=== PATIENT | male | born 1990 | race Caucasian/White ===

== ENCOUNTER 2017-03-07 11:26 | Emergency (ER) | payer OTHER ==
[~2017-03-07] VITALS: Ht 162.6 cm; Wt 59.0 kg
[~2017-03-07 11:26] MED LIST: ALBUTEROL0.09 MG/A1 INH; DELTASONE20 MG PO; DILAUDID2 MG PO; GUAIFENESIN-COD10 ML PO; PROAIR HFA0.09 MG/Ac INH; PROAIR HFA8.5 GM INH; TESSALON PERLE100 MG PO; TRAMADOL50 MG PO; ZITHROMAX Z-PA250 M1 PO; ZITHROMAX250 M2 PO
--- NOTE | 2017-03-07 11:48 | ED INFLUENZA/URI COMPLAINT ---
History of Present Illness General Chief Complaint: Upper Respiratory Sx/Fever Stated Complaint: PT COUGHING UP BLOOD,AND GREEN STUFF Source: patient Exam Limitations: no limitations Vital Signs & Intake/Output Vital Signs & Intake/Output Vital Signs Date Time Temp Pulse Resp B/P B/P Pulse O2 O2 Flow FiO2 Mean Ox Delivery Rate 03/07 1327 97.1 89 18 121/70 96 Room Air ED Intake and Output 03/08 0000 03/07 1200 Intake Total Output Total Balance Patient 130 lb Weight Allergies Coded Allergies: No Known Allergies (03/20/16) Reconcile Medications Albuterol Sulfate (Proair Hfa) 8.5 GM HFA.AER.AD 2 PUF INH Q4-6 PRN PRN BRONCHITIS Amoxicillin/Potassium Clav (Augmentin 875-125 Tablet) 875 MG-125 MG TABLET 1 TAB PO BID BRONCHITIS Benzonatate (Tessalon Perle) 100 MG CAPSULE 1 CAP PO TID PRN COUGH Triage Note: PT STATES THAT HE WAS DIAGNOSED WITH BRONCHITIS AND WAS GIVEN INHALER/ABT/ AND STEROIDS. STATES THAT HE DOES NOT FEEL BETTER. DENIES SEEING BLOOD, STTAES THAT HE TASTE IT INHIS MOUTH WHEN HE COUGHS Triage Nurses Notes Reviewed? yes Onset: Gradual Duration: week(s): (2-3) Timing: recent history Severity: moderate Severity Numbers: 7 Prior Episodes/Possible Cause: occassional episodes No Modifying Factors: none HPI: Patient is a 26-year-old smoker presenting to the emergency department with chief complaint of intermittently productive cough of dark green phlegm has been going on for the past 2 weeks. Patient has still been smoking but cut back significantly. Denies any nausea vomiting fevers or chills. He saw his primary care physician about a week ago and was put on steroids, a Z-Darian and an inhaler. He reports that has not been helping. Denies any abdominal pain. No chest pain no shortness of breath. He does have history of asthma. He reports that he tasted blood in his mouth but did not see any blood. Denies alcohol use. Denies excessive NSAID use or stomach ulcers. (RAFY HARDIN) Past History Travel History Traveled to [place] past 21 day No Medical History Any Pertinent Medical History? 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 No (RAFY HARDIN) Review of Systems Review of Systems Constitutional: Reports: no symptoms. Comments Review of systems: See HPI, All other systems negative. Constitutional, no chills fever or weight loss HEENT: No visual changes no sore throat Cardiovascular: No chest pain ,palpitation , orthopnea or ankle swelling Skin, no jaundice no rashes Respiratory: No dyspnea or hemoptysis GI: No nausea no vomiting : No dysuria No hematuria Muscle skeletal: no back pain, no neck pain, Neurologic: No numbness no confusion Psych: No stress anxiety or depression,. Heme/endocrine: No bruising no bleeding no polyuria or polydipsia Immunology: No splenectomy or history of AIDS (RAFY HARDIN) Physical Exam Physical Exam General Appearance: well developed/nourished, no apparent distress, alert, awake , comfortable Ears, Nose, Throat: nasal congestion Comments: Well-developed well-nourished person in no acute distress HEENT: Normal EENT exam, extraocular motion intact, no nystagmus. Pupils equally round and reactive to light and accommodation. Nose is atraumatic. External auditory canal and Tympanic membranes clear. Pharynx is mildly erythematous, no exudate. Clearing secretions without difficulty. No swelling or edema. Neck: Supple, no lymphadenopathy, normal range of motion without pain or tenderness Back: Nontender Cardiovascular: Regular rate and rhythms no murmurs rubs or gallops, normal JVP Respiratory: Chest nontender. No respiratory distress.breath sounds slightly diminished to auscultation bilaterally Extremity: No edema Neuro: Alert oriented x3 Skin: No appreciable rash on exposed skin, skin is warm and dry. Psych: Mood and affect is normal, memory and judgment is normal. Core Measures Severe Sepsis Present: No Septic Shock Present: No (RAFY HARDIN) Progress Differential Diagnosis: influenza, pharyngitis, sinusitis Plan of Care: Orders Procedure Date/time Status XRY-CHEST XRAY, PA AND LATERAL 03/07 1147 Active Diagnostic Imaging: Viewed by Me: Radiology Read. Discussed w/RAD: Radiology Read. CXR Impression: no acute abnormality, no infiltrates, normal size heart, normal mediastinum Initial ED EKG: none (RAFY HARDIN) Departure Departure Time of Disposition: 1321 Disposition: HOME OR SELF CARE Condition: Stable Clinical Impression Primary Impression: Bronchitis Referrals: LORENA SINHA APRN (PCP/Family) Additional Instructions: Follow-up with your primary care physician call to make an appointment. Increase fluids. Take antibiotics as prescribed. Take cough medication as prescribed. Continue using inhaler. Return for worsening symptoms or concerns. Departure Forms: Customer Survey General Discharge Information Prescriptions: Current Visit Scripts Amoxicillin/Potassium Clav (Augmentin 875-125 Tablet) 1 TAB PO BID #20 TAB Benzonatate (Tessalon Perle) 1 CAP PO TID PRN COUGH #30 CAP (RAFY HARDIN) PA/[employer] Co-Sign Statement Statement: ED Attending supervision documentation- [] I saw and evaluated the patient. I have also reviewed all the pertinent lab results and diagnostic results. I agree with the findings and the plan of care as documented in the PA's/[employer] documentation. [X] I have reviewed the ED Record and agree with the PA's/[employer] documentation. [] Additions or exceptions (if any) to the PAs/[employer]'s note and plan are summarized below: [] (AIMEE MAURICIO,HEVER)
--- NOTE | 2017-03-07 13:02 | RADIOLOGY REPORT ---
EXAMINATION: XR CHEST CLINICAL INFORMATION: Cough. COMPARISON: Chest done on 03/14/2016. TECHNIQUE: 2 views of the chest were obtained. FINDINGS: Persistent stable mild hyperinflated lung field is present, appear bilaterally symmetric. No superimposed discrete focal airspace opacity, lung nodule and/or mass is identified on either side. The cardiomediastinal silhouette is within normal limits. There is no pleural effusion present. The visualized upper abdomen is unremarkable. Overall, no significant change since prior study. IMPRESSION: No acute cardiopulmonary disease. No significant change since 03/14/2016.
[2017-03-07] MEDS ORDERED: TESSALON PERLE100 M1 PO (13:25)
[2017-03-07] MEDS ORDERED: AUGMENTIN 875-1 EACH PO (13:25)
[2017-03-07 13:27] VITALS: BP 121/70
== END 2017-03-07 13:30 ==
LOC: ERH 11:26
DX: J40 Bronchitis, not specified as acute or chronic (principal); F17.210 Nicotine dependence, cigarettes, uncomplicated

== ENCOUNTER 2017-03-11 04:10 | Emergency (ER) | payer OTHER ==
[~2017-03-11] VITALS: Ht 162.6 cm; Wt 59.0 kg
[~2017-03-11 04:10] MED LIST changes: +AUGMENTIN 875-1 EACH PO; +TESSALON PERLE100 M1 PO
[2017-03-11 04:15] VITALS: BP 116/78
--- NOTE | 2017-03-11 04:19 | ED DYSPNEA/ASTHMA COMPLAINT ---
History of Present Illness General Chief Complaint: Dyspnea (COPD, CHF, Other) Stated Complaint: DIFF BREATHING 96% ON RM AIR Source: patient, old records Exam Limitations: no limitations Vital Signs & Intake/Output Vital Signs & Intake/Output Vital Signs Date Time Temp Pulse Resp B/P B/P Pulse O2 O2 Flow FiO2 Mean Ox Delivery Rate 03/11 0435 95 03/11 0419 95 Room Air 03/11 0415 96.2 80 18 116/78 95 Room Air Allergies Coded Allergies: No Known Allergies (03/20/16) Reconcile Medications Albuterol Sulfate (Proair Hfa) 8.5 GM HFA.AER.AD 2 PUF INH Q4-6 PRN PRN BRONCHITIS Amoxicillin/Potassium Clav (Augmentin 875-125 Tablet) 875 MG-125 MG TABLET 1 TAB PO BID BRONCHITIS Benzonatate (Tessalon Perle) 100 MG CAPSULE 1 CAP PO TID PRN COUGH Triage Note: TRIAGE: PATIENT TO ER FROM HOME REPORTS DRY COUGH X 4 WEEKS W/ INTERMITTENT CLEAR PRODUCTION W/ "BLOOD TINGED FROM BROKEN BLOOD VESSEL." SPEAKING W/ CLEAR SPEECH/ FULL SENTENCES. NO AUCTE DISTRESS NOTED. 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 REPORTS SEEN FRIDAY W/ CHEST XRAY DONE, GIVEN RX FOR ABX, CODIENE AND INHALER USING ALL W/O RELIEF. AWAITING MD MATHUR. Triage Nurses Notes Reviewed? yes HPI: Condition percent to the emergency room with an ongoing cough. Patient was seen by his primary care physician and prescribed prednisone and an inhaler. Patient then came to the emergency department on March 07 and had a negative chest x-ray. Patient was put on Augmentin, Tessalon Perles and Robitussin with codeine. Patient states that he continues to have a cough however he no longer has blood in his sputum. There are no fevers or chills. Patient states he was unable to sleep at all tonight secondary to the coughing. There is no orthopnea. No dyspnea on exertion. There is no chest pain or chest tightness. Past History Travel History Traveled to [place] past 21 day No Medical History Any Pertinent Medical History? 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 No Review of Systems Review of Systems Constitutional: Reports: no symptoms. EENTM: Reports: no symptoms. Respiratory: Reports: see HPI, cough, sputum production. Cardiovascular: Reports: no symptoms. GI: Reports: no symptoms. Genitourinary: Reports: no symptoms. Musculoskeletal: Reports: no symptoms. Skin: Reports: no symptoms. Neurological/Psychological: Reports: no symptoms. Hematologic/Endocrine: Reports: no symptoms. Immunologic/Allergic: Reports: no symptoms. All Other Systems: Reviewed and Negative Physical Exam Physical Exam General Appearance: well developed/nourished, alert, awake, anxious, mild distress Head: atraumatic, normal appearance Eyes: Bilateral: PERRL, EOMI. Ears, Nose, Throat: normal pharynx, normal ENT inspection, hearing grossly normal Neck: normal inspection, supple, full range of motion Respiratory: chest non-tender, wheezing, GOOD AIR ENTRY Cardiovascular: regular rate/rhythm, normal peripheral pulses Gastrointestinal: normal bowel sounds, soft, non-tender, no organomegaly Extremities: normal inspection, normal capillary refill, normal range of motion, no edema Neurologic/Psych: no motor/sensory deficits, awake, alert, oriented x 3, normal gait, normal mood/affect Skin: intact, normal color, warm/dry Lymphatic: no anterior cervical andi Core Measures ACS in differential dx? No Severe Sepsis Present: No Septic Shock Present: No Progress Differential Diagnosis: asthma, bronchitis, pneumonia Plan of Care: Current Medications Sig/Patric Start time Last Medication Dose Stop Time Status Admin Albuterol Sulfate 3 ML ONCE ONE 03/11 430 AC (Proventil) 03/11 431 Ipratropium Patterson 2.5 ML ONCE ONE 03/11 430 AC (Atrovent) 03/11 431 Initial ED EKG: none Comments: Patient feels much better after the DuoNeb. Departure Departure Disposition: HOME OR SELF CARE Condition: Stable Clinical Impression Primary Impression: Bronchitis Referrals: LORENA SINHA APRN (PCP/Family) Additional Instructions: RETURN FOR ANY CONCERNS Departure Forms: Customer Survey General Discharge Information Critical Care Note Critical Care Note Critical Care Time: non-applicable
== END 2017-03-11 05:08 ==
LOC: ERH 04:10
DX: J40 Bronchitis, not specified as acute or chronic (principal); Z87.891 Personal history of nicotine dependence
CPT/HCPCS: 1263; 1395

== ENCOUNTER 2017-05-22 15:17 | Emergency (ER) | payer OTHER ==
[~2017-05-22] VITALS: Ht 160 cm; Wt 59.0 kg
[2017-05-22 15:24] VITALS: BP 134/83
--- NOTE | 2017-05-22 16:18 | CT SCAN REPORT ---
EXAMINATION: CT HEAD WITHOUT CONTRAST CLINICAL INFORMATION: Head trauma. Blurred vision, lethargy. COMPARISON: 04/05/2008 TECHNIQUE: Contiguous axial imaging was performed from the skull base to vertex without intravenous contrast. DLP: 612 mGy-cm. FINDINGS: There is no evidence of acute intracranial hemorrhage or territorial infarction. No abnormal mass effect or midline shift is seen. Ayon to white matter differentiation is well preserved. No extra-axial fluid collections are identified. No hydrocephalus. No significant volume loss. There is no abnormal attenuation within the brain parenchyma. The osseous structures and soft tissues are normal. The mastoid air cells and visualized portions of the paranasal sinuses are well aerated. IMPRESSION: No acute intracranial pathology.
[2017-05-22] MEDS ORDERED: IBUPROFEN800 M1 PO (17:33)
[2017-05-22] MEDS ORDERED: TRAMADOL HCL50 M1 PO (17:33)
--- NOTE | 2017-05-22 17:34 | ED MVC/FALL/TRAUMA COMPLAINT ---
History of Present Illness General Chief Complaint: Facial or Head Injury Stated Complaint: PT HIT HIS HEAD WITH A BAR AT WORK Source: patient Exam Limitations: no limitations Vital Signs & Intake/Output Vital Signs & Intake/Output Vital Signs Date Time Temp Pulse Resp B/P B/P Pulse O2 O2 Flow FiO2 Mean Ox Delivery Rate 05/22 1524 98.9 62 16 134/83 99 Room Air Allergies Coded Allergies: No Known Allergies (03/20/16) Reconcile Medications Albuterol Sulfate (Proair Hfa) 8.5 GM HFA.AER.AD 2 PUF INH Q4-6 PRN PRN BRONCHITIS Amoxicillin/Potassium Clav (Augmentin 875-125 Tablet) 875 MG-125 MG TABLET 1 TAB PO BID BRONCHITIS Benzonatate (Tessalon Perle) 100 MG CAPSULE 1 CAP PO TID PRN COUGH Ibuprofen 800 MG TABLET 1 TAB PO TID PRN pain Tramadol HCl 50 MG TABLET 1 TAB PO TIDP PRN pain Triage Note: PT HIT HEAD INTO METAL BAR APPROX 4 HOURS AGO, DENIES LOC. ICED IT WITHOUT RELIEF. C/O BLURRED VISION. APPEARS LETHARGIC. +N/-V. PT HAS PHOTOSENSITIVITY, PUPILS REACTIVE, L 4MM AND R 3MM. DIFFICULTY WITH FOCAL CONTROL. SPEAKING IN CLEAR SENTENCES. Triage Nurses Notes Reviewed? yes Onset: Abrupt Duration: hour(s): (6), continues in ED, getting worse Timing: single episode today Severity: moderate, severe Severity Numbers: 9 Injuries/Fall Location: head Method of Injury: direct blow Loss of Consciousness: no loss of consciousness No Modifying Factors: none Associated Symptoms: headache HPI: 27-year-old male with no past medical history presents complaining of headache after hitting his head earlier today. 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 He states that he had some blurred vision and medially after hitting his head but did not lose consciousness. The blood vision has since resolved. He did not fall over and hit his head. Since then he has a headache on the top of his head with associated lump. Pain is worse with touching the area. He rates pain as a 9 out of 10. He tried taking Excedrin earlier today without any improvement. He denies any vomiting but does report some nausea since. No memory loss, confusion, blood thinners, and could be, chest pain, shortness of breath, previous head injuries, or any other associated symptoms. Past History Travel History Traveled to [place] past 21 day No Medical History Any Pertinent Medical History? 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 No Review of Systems Review of Systems Constitutional: Reports: see HPI. Eyes: Reports: no symptoms. Ears, Nose, Throat, Mouth: Reports: no symptoms. Respiratory: Reports: no symptoms. Cardiovascular: Reports: no symptoms. Gastrointestinal/Abdominal: Reports: no symptoms. Genitourinary: Reports: no symptoms. Musculoskeletal: Reports: no symptoms. Skin: Reports: no symptoms. Neurological/Psychological: Reports: headache. All Other Systems: Reviewed and Negative Physical Exam Physical Exam General Appearance: well developed/nourished, no apparent distress, alert, awake , comfortable Head: atraumatic, normal appearance Eyes: Bilateral: normal appearance, PERRL, EOMI, normal inspection. Ears, Nose, Throat, Mouth: hearing grossly normal, moist mucous membrane, Tympanic normal Neck: normal inspection, supple, full range of motion, normal alignment Respiratory: normal breath sounds, chest non-tender, no respiratory distress, lungs clear Cardiovascular: regular rate/rhythm, edema, normal peripheral pulses Peripheral Pulses: 2+ radial (R), 2+ radial (L) Gastrointestinal: normal bowel sounds, soft, non-tender, no organomegaly Back: normal inspection, normal range of motion, no vertebral tenderness Extremities: normal range of motion, no ligament instability Neurologic/Psych: no motor/sensory deficits, awake, alert, oriented x 3, normal gait, normal mood/affect, equipment lead II-XII nml as tested Skin: intact, normal color, warm/dry Core Measures ACS in differential dx? No Severe Sepsis Present: No Septic Shock Present: No Progress Differential Diagnosis: ICH, spinal cord injury, CONCUSSION, CONTUSION, TBI Plan of Care: CT scan of the head is negative for acute trauma. Patient's neuro exam is within normal limits. No lacerations to the head. Patient was educated about head injuries and things look out for. Patient will be given a prescription for ibuprofen and tramadol to use for pain. Advised him to rest and avoid excessive physical activity or mental activity. Advised patient to follow up with his primary care doctor in the next coming few days. Return to the emergency department with any concerns. I discussed with the patient at length all of their results. I had an extensive conversation regarding need for close follow up with their primary care physician this week as well as return precautions. I answered all of their questions, they feel comfortable with the plan and follow-up care. I discussed with the patient/family the medications that they will receive. I gave them signs and symptoms that could indicate an adverse reaction. I have advised them to limit their activities until they can see how they respond to the medication. Diagnostic Imaging: Viewed by Me: CT Scan. Discussed w/RAD: CT Scan. Comments: PATIENT: MIKE PAZ JR PRESENT AGE: 27 PATIENT ACCOUNT NO: [id number] : 89 LOCATION: [facility] ORDERING PHYSICIAN: ARIEL AMANDA DO (TBS) SERVICE DATE: 05/22/17 EXAM TYPE: CAT - CT HEAD WO IV CONTRAST EXAMINATION: CT HEAD WITHOUT CONTRAST CLINICAL INFORMATION: Head trauma. Blurred vision, lethargy. COMPARISON: 04/05/2008 TECHNIQUE: Contiguous axial imaging was performed from the skull base to vertex without intravenous contrast. DLP: 612 mGy-cm. FINDINGS: There is no evidence of acute intracranial hemorrhage or territorial infarction. No abnormal mass effect or midline shift is seen. Ayon to white matter differentiation is well preserved. No extra-axial fluid collections are identified. No hydrocephalus. No significant volume loss. There is no abnormal attenuation within the brain parenchyma. The osseous structures and soft tissues are normal. The mastoid air cells and visualized portions of the paranasal sinuses are well aerated. IMPRESSION: No acute intracranial pathology. DICTATED BY: TRAVON MAURICIO,BENJAMIN DATE/TIME DICTATED:05/22/171610 [employer] LABORER:RACHAEL DATE/TIME TRANSCRIBED:05/22/171610 Departure Departure Disposition: HOME OR SELF CARE Condition: Stable Clinical Impression Primary Impression: Head injury due to trauma Qualifiers: Encounter type: initial encounter Qualified Code: S09.90XA - Unspecified injury of head, initial encounter Referrals: LORENA SINHA APRN (PCP/Family) Additional Instructions: Rest, avoid excessive physical activity or mental activity. Use ibuprofen 800 mg every 8 hours as needed for pain. Tramadol can be used as needed for severe pain only this may cause drowsiness. See attached information about headache and head injury warning signs. Make a follow-up appointment with your primary care doctor. Return to the emergency department with any concerns. Please go over all results of today's visit with your primary care doctor. Contact your primary care doctor to let them know you were here in the emergency room. There may be nonspecific findings which may not be related to your visit today here in the emergency room but may require further evaluation and chronic monitoring by your primary care doctor. If you had a laceration today the chance of foreign body always remains. You should follow-up with your primary care doctor for recheck in 3-5 days for a wound check. If you had an x-ray done there is a chance that a fracture could have been missed on initial read and you should follow-up with your primary care doctor for repeat x-rays if symptoms persist. If your blood pressure was elevated here in the emergency room please have rechecked by her primary care doctor within the next 48 hours by your primary care doctor. If you were prescribed a narcotic here in the emergency room or any type of controlled substances you're not allowed to drive while taking this medication or operate any type of heavy machinery. Narcotics can make you feel lightheaded dizziness nausea and can cause constipation. 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 Thank you for choosing [facility] emergency room. Please return to the emergency room immediately if you have any other concerns worsening of symptoms. Departure Forms: Customer Survey General Discharge Information Prescriptions: Current Visit Scripts Ibuprofen 1 TAB PO TID PRN pain #30 TAB Tramadol HCl 1 TAB PO TIDP PRN pain #10 TAB
== END 2017-05-22 17:41 ==
LOC: ERH 15:17
DX: S09.90XA Unspecified injury of head, initial encounter (principal); W22.09XA Striking against other stationary object, initial encounter; Y93.89 Activity, other specified; Y92.9 Unspecified place or not applicable